=== PATIENT | female | born 1995 | race Caucasian/White ===

== ENCOUNTER 2016-12-28 18:33 | Emergency (ER) | payer SELFPAY ==
[2016-12-28 19:01] VITALS: BP 111/78; PULSE 73; TEMP 98.2; BMI 24.3
[2016-12-28 20:53] LABS: URINE APPEARANCE SLCLOUDY; URINE BILIRUBIN NEGATIVE (NEGATIVE); URINE BLOOD 1+ (NEGATIVE); URINE COLOR STRAW; URINE GLUCOSE (UA) NEGATIVE (NEGATIVE); URINE KETONE NEGATIVE (NEGATIVE); URINE LEUK ESTERASE 2+ (NEGATIVE); URINE NITRITE NEGATIVE (NEGATIVE); URINE PROTEIN NEGATIVE (NEGATIVE); URINE UROBILINOGEN NEGATIVE E.U./dl (0.2-1.0)
[2016-12-28 20:55] LABS: URINE RBC <1 /hpf (0-3); URINE WBC 20 /hpf (3-5)
[2016-12-28 20:56] LABS: URINE BACTERIA MANY /hpf (NONE SEEN)
--- NOTE | 2016-12-28 21:31 | PDOC ---
History of Present Illness - General Chief Complaint: Urinary Problem Stated Complaint: URINARY PROBLEM Time Seen by Provider: 12/28/16 21:05 History Source: Patient Exam Limitations: No Limitations - History of Present Illness Travel History: No Initial Comments: 12/28/16 21:29 21 yr female with pain and urgency with urination for 2 weeks. pt has history of frequent UTI. no fever no vomiting. no medical history. Pain Radiation: reports: no radiation Past History - Past Medical History Allergies/Adverse Reactions: Allergies Allergy/AdvReac Type Severity Reaction Status Date / Time milk Allergy Rash Verified 12/28/16 18:58 tomato [Tomato] Allergy Rash Verified 12/28/16 18:58 wheat Allergy Hives Verified 12/28/16 18:58 Home Medications: Ambulatory Orders Cephalexin [Keflex] 500 mg PO BID #14 capsule 12/28/16 Phenazopyridine HCl [Pyridium] 200 mg PO TID PRN #6 tablet 12/28/16 Anemia: Yes Asthma: No Cancer: No Cardiac Disorders: No Disorders: Yes (UTI'S AND KIDNEY INFECTIONS) - Reproductive History (#): 0 - Immunization History Immunization Up to Date: Yes - Psycho/Social/Smoking Cessation Hx Anxiety: Yes ( YOUNGER CHILD, NO MEDS NOW) Suicidal Ideation: No Smoking Status: No Smoking History: Never smoked Have you smoked in the past 12 months: No Number of Cigarettes Smoked Daily: 0 Hx Alcohol Use: No Drug/Substance Use Hx: No Substance Use Type: None Review of Systems - Review of Systems Able to Perform ROS?: Yes Is the patient limited Togolese proficient: No Constitutional: No: Symptoms Reported HEENTM: No: Symptoms Reported Respiratory: No: Symptoms reported Cardiac (ROS): No: Symptoms Reported ABD/GI: No: Symptoms Reported : Yes: Symptoms Reported *Physical Exam - Vital Signs Last Vital Signs Temp Pulse Resp BP Pulse Ox 98.2 F 73 19 111/78 100 12/28/16 18:58 12/28/16 18:58 12/28/16 18:58 12/28/16 18:58 12/28/16 18:58 - Physical Exam General Appearance: Yes: Nourished, Appropriately Dressed HEENT: positive: EOMI, LIBAN Neck: positive: Supple Respiratory/Chest: positive: Lungs Clear, Normal Breath Sounds Cardiovascular: positive: Regular Rhythm, Regular Rate Gastrointestinal/Abdominal: positive: Normal Bowel Sounds, Soft Musculoskeletal: positive: Normal Inspection. negative: CVA Tenderness, CVA Tenderness (R) Extremity: positive: Normal Capillary Refill, Normal Inspection, Normal Range of Motion Integumentary: positive: Normal Color, Dry, Warm Neurologic: positive: Fully Oriented, Alert, Normal Mood/Affect, Normal Response , Motor Strength 5/ ED Treatment Course - ADDITIONAL ORDERS Additional order review: Laboratory Results 12/28/16 20:30 Urine Color Straw Urine Appearance Slcloudy Urine pH 6.0 Ur Specific [place] 1.003 Urine Protein Negative Urine Glucose (UA) Negative Urine Ketones Negative Urine Blood 1+ H Urine Nitrite Negative Urine Bilirubin Negative Urine Urobilinogen Negative Ur Leukocyte Esterase 2+ H Urine RBC <1 Urine WBC 20 Ur Epithelial Cells Few Urine Bacteria Many Urine HCG, Qual Negative Medical Decision Making - Medical Decision Making 12/28/16 21:30 cc: urinary urgency and frequency no fever or chills will check UA, 'LMP 3 weeks ago denies vaginal discharge *DC/Admit/Observation/Transfer Diagnosis at time of Disposition: UTI (urinary tract infection) Qualifiers: Urinary tract infection type: acute cystitis Hematuria presence: with hematuria Qualified Code(s): N30.01 - Acute cystitis with hematuria - Discharge Dispostion Disposition: HOME Condition at time of disposition: Good - Prescriptions Prescriptions: Cephalexin [Keflex] 500 mg PO BID #14 capsule Phenazopyridine HCl [Pyridium] 200 mg PO TID PRN #6 tablet PRN Reason: Pain - Patient Instructions Additional Instructions: drink pleanty of water take the antibiotics as prescribed take pyridium as directed for discomfort follow with your mortar man or primary care in one week for repeat urine sample test return if any worsening symptoms
[2016-12-28] MEDS ORDERED: CEPHALEXIN MONOHYDRATE 500 MG CAPSULE (UD) PO ONE (21:32)
[2016-12-28] MEDS ORDERED: PHENAZOPYRIDINE HCL 100 MG TABLET (FP) PO ONE (21:32)
[2016-12-28] MEDS ORDERED: PHENAZOPYRIDINE HCL 100 MG TABLET (FP) ONE (21:34)
[2016-12-28] MEDS ORDERED: CEPHALEXIN MONOHYDRATE 500 MG CAPSULE (UD) ONE (21:35)
== END 2016-12-28 21:44 | disposition home or self-care (01) ==
LOC: JERFT 18:33
DX: N30.01 Acute cystitis with hematuria (principal)
CPT/HCPCS: 36415; 81003; 81015; 84703; 87086; 87186; 87491; 87591; 99281-25

== ENCOUNTER 2017-04-10 01:02 | Emergency (ER) | payer OTHER ==
[2017-04-10 01:22] VITALS: BP 101/69; PULSE 84; TEMP 98.7; BMI 23.9
--- NOTE | 2017-04-10 01:47 | PDOC ---
History of Present Illness - General History Source: Patient Exam Limitations: No Limitations - History of Present Illness Initial Comments: 04/10/17 01:46 The patient is a 22 year old female, with a significant past medical history of frequent urinary tract infections, who presents to the emergency department complaining of dysuria prior to arrival. The patient reports difficulty urinating and painful urination. The patient states she was seen for a previous urinary tract infection approx. two months ago and received a full course of antibiotics (unable to provide medication name) with mild relief. Patient reports associated symptoms of lower back pain and nausea. Patient denies hematuria. She denies recent fevers, chills, headache or dizziness. She denies recent nausea, vomit, diarrhea or constipation. She denies recent chest pain or shortness of breath. Allergies: Milk, Tomato, Wheat Past surgical history: None reported. Social history: Nonsmoker. Denies EtOH use and recreational drug use. Primary Care Physician: None <Trace Singh - Last Filed: 04/10/17 02:53> <More Leo - Last Filed: 04/10/17 05:14> - General Chief Complaint: Pain Stated Complaint: PAIN WHEN URINATING Time Seen by Provider: 04/10/17 01:46 Past History <Trace Singh - Last Filed: 04/10/17 02:53> - Past Medical History Anemia: Yes Asthma: No Cancer: No Cardiac Disorders: No Disorders: Yes (UTI's & kidney infections) - Reproductive History (#): 0 - Immunization History Immunization Up to Date: Yes - Psycho/Social/Smoking Cessation Hx Anxiety: Yes ( YOUNGER CHILD, NO MEDS NOW) Suicidal Ideation: No Smoking Status: No Smoking History: Never smoked Have you smoked in the past 12 months: No Number of Cigarettes Smoked Daily: 0 Information on smoking cessation initiated: No Hx Alcohol Use: No Drug/Substance Use Hx: No Substance Use Type: None <More Leo - Last Filed: 04/10/17 05:14> - Past Medical History Allergies/Adverse Reactions: Allergies Allergy/AdvReac Type Severity Reaction Status Date / Time milk Allergy Rash Verified 04/10/17 01:14 tomato [Tomato] Allergy Rash Verified 04/10/17 01:14 wheat Allergy Hives Verified 04/10/17 01:14 Home Medications: Ambulatory Orders Cephalexin [Keflex] 500 mg PO BID #14 capsule 12/28/16 Phenazopyridine HCl [Pyridium] 200 mg PO TID PRN #6 tablet 12/28/16 Levofloxacin [Levaquin] 750 mg PO DAILY #4 tab 04/10/17 Review of Systems - Review of Systems Able to Perform ROS?: Yes Comments:: 04/10/17 01:46 GENERAL/CONSTITUTIONAL: No fever or chills. No weakness. HEAD, EYES, EARS, NOSE AND THROAT: No change in vision. No ear pain or discharge. No sore throat. CARDIOVASCULAR: No chest pain or shortness of breath. RESPIRATORY: No cough, wheezing, or hemoptysis. GASTROINTESTINAL: +Nausea. No vomiting, diarrhea or constipation. GENITOURINARY: +Dysuria. MUSCULOSKELETAL: +Lower back pain. No joint or muscle swelling or pain. No neck pain. SKIN: No rash NEUROLOGIC: No headache, vertigo, loss of consciousness, or change in strength/ sensation. ENDOCRINE: No increased thirst. No abnormal weight change. HEMATOLOGIC/LYMPHATIC: No anemia, easy bleeding, or history of blood clots. ALLERGIC/IMMUNOLOGIC: No hives or skin allergy. <Trace Singh - Last Filed: 04/10/17 02:53> *Physical Exam - Vital Signs Last Vital Signs Temp Pulse Resp BP Pulse Ox 98.7 F 84 20 101/69 99 04/10/17 01:15 04/10/17 01:15 04/10/17 01:15 04/10/17 01:15 04/10/17 01:15 - Physical Exam Comments: 04/10/17 01:46 GENERAL: Awake, alert, and fully oriented, in no acute distress HEAD: No signs of trauma EYES: PERRLA, EOMI, sclera anicteric, conjunctiva clear ENT: Auricles normal inspection, hearing grossly normal, nares patent, oropharynx clear without exudates. Moist mucosa NECK: Normal ROM, supple, no lymphadenopathy, JVD, or masses LUNGS: Breath sounds equal, clear to auscultation bilaterally. No wheezes, and no crackles HEART: Regular rate and rhythm, normal S1 and S2, no murmurs, rubs or gallops ABDOMEN: +Mild suprapubic tenderness. Soft, nontender, normoactive bowel sounds. No guarding, no rebound. No masses EXTREMITIES: Normal range of motion, no edema. No clubbing or cyanosis. No cords, erythema, or tenderness NEUROLOGICAL: Cranial nerves II through XII grossly intact. Normal speech, normal gait SKIN: Warm, Dry, normal turgor, no rashes or lesions noted. Back: No CVA tenderness <Trace Singh - Last Filed: 04/10/17 02:53> - Vital Signs Last Vital Signs Temp Pulse Resp BP Pulse Ox 98.7 F 84 20 101/69 99 04/10/17 01:15 04/10/17 01:15 04/10/17 01:15 04/10/17 01:15 04/10/17 01:15 <More Leo - Last Filed: 04/10/17 05:14> ED Treatment Course - ADDITIONAL ORDERS Additional order review: Laboratory Results 04/10/17 02:00 Urine Color Lt. yellow Urine Appearance Clear Urine pH 6.5 Urine Protein 1+ H Urine Glucose (UA) Negative Urine Ketones Trace H Urine Blood 1+ H Urine Nitrite Negative Urine Bilirubin Negative Urine Urobilinogen 0.2 Ur Leukocyte Esterase 2+ H Urine HCG, Qual Negative <Trace Singh - Last Filed: 04/10/17 02:53> Medical Decision Making - Medical Decision Making Prior culture results reviewed. Patient has had two cultures in the past year, both sensitive to levaquin. Prior culture from 2012 was resistant to levaquin. Will treat with levaquin at present, as she recently failed treatment with keflex. UCx pending. Will give her f/u information for internal medicine, as she needs an hydrate control tender for referrals. Should f/u with urology. <More Leo - Last Filed: 04/10/17 05:14> *DC/Admit/Observation/Transfer - Attestations Scribe Attestion: 04/10/17 02:54 Documentation prepared by Trace Singh, acting as electromedical service engineer for More Leo MD. <Trace Singh - Last Filed: 04/10/17 02:53> - Discharge Dispostion Admit: No <More Leo - Last Filed: 04/10/17 05:14> Diagnosis at time of Disposition: UTI (urinary tract infection) Qualifiers: Urinary tract infection type: site unspecified Hematuria presence: without hematuria Qualified Code(s): N39.0 - Urinary tract infection, site not specified - Discharge Dispostion Disposition: HOME Condition at time of disposition: Stable - Prescriptions Prescriptions: Levofloxacin [Levaquin] 750 mg PO DAILY #4 tab - Patient Instructions Printed Discharge Instructions: DI for Urinary Tract Infection (UTI)
[2017-04-10 02:29] LABS: PH,URINE 6.5 (5.0-8.0); URINE APPEARANCE CLEAR; URINE BILIRUBIN NEGATIVE (NEGATIVE); URINE BLOOD 1+ (NEGATIVE); URINE COLOR LT. YELLOW; URINE GLUCOSE (UA) NEGATIVE (NEGATIVE); URINE KETONE TRACE (NEGATIVE); URINE NITRITE NEGATIVE (NEGATIVE); URINE UROBILINOGEN 0.2 mg/dL (0.2-1.0)
[2017-04-10 02:38] LABS: URINE LEUK ESTERASE 2+ (NEGATIVE); URINE PROTEIN 1+ (NEGATIVE)
[2017-04-10] MEDS ORDERED: LEVOFLOXACIN 250 MG TABLET (FP) PO ONE (02:47)
[2017-04-10 02:52] LABS: URINE HYALINE CAST 3 /lpf; URINE MUCUS MANY; URINE RBC 16 /hpf (0-3); URINE WBC 155 /hpf (3-5)
[2017-04-10] MEDS ORDERED: LEVOFLOXACIN 500 MG TABLET (FP) ONE (03:07)
[2017-04-10] MEDS ORDERED: LEVOFLOXACIN 250 MG TABLET (FP) ONE (03:08)
== END 2017-04-10 03:04 | disposition home or self-care (01) ==
LOC: JER 01:02
DX: N39.0 Urinary tract infection, site not specified (principal); D64.9 Anemia, unspecified
CPT/HCPCS: 81003; 81015; 84703; 87086; 87186; 99282-25

== ENCOUNTER 2018-07-27 23:26 | Emergency (ER) | payer SELFPAY ==
--- NOTE | 2018-07-27 23:42 | PDOC ---
History of Present Illness - General History Source: Patient Exam Limitations: No Limitations - History of Present Illness Initial Comments: 07/28/18 00:05 CC: Fever and body aches HPI: The patient is a 23 year old female, with no significant past medical history, who presents to the emergency department with, 1 day of fever and body aches. As per patient, her symptoms onset this morning with an associated nausea, headache, and sore throat. She notes a Tmax of 104 degrees Fahrenheit. Patient endorses that her symptoms are similar to that in the past when she was diagnosed with the flu. She denies recent dizziness. She denies recent vomit, diarrhea or constipation. She denies recent dysuria, frequency, urgency or hematuria. She denies recent chest pain or shortness of breath. Allergies: Tomato, wheat, milk Past surgical history: None reported. Social history: Nonsmoker. Denies EtOH use and recreational drug use. Primary Care Physician: Dr. Pozo <Leila García - Last Filed: 07/28/18 00:05> <William Gabriel - Last Filed: 07/28/18 05:22> - General Chief Complaint: Respiratory Stated Complaint: FEVER Time Seen by Provider: 07/27/18 23:29 Past History <Leila García - Last Filed: 07/28/18 00:05> - Past Medical History Anemia: Yes Asthma: No Cancer: No Cardiac Disorders: No Disorders: Yes (UTI'S AND KIDNEY INFECTIONS) - Reproductive History (#): 0 - Immunization History Immunization Up to Date: Yes - Suicide/Smoking/Psychosocial Hx Smoking Status: No Smoking History: Never smoked Have you smoked in the past 12 months: No Number of Cigarettes Smoked Daily: 0 Hx Alcohol Use: No Drug/Substance Use Hx: No Substance Use Type: None <William Gabriel - Last Filed: 07/28/18 05:22> - Past Medical History Allergies/Adverse Reactions: Allergies Allergy/AdvReac Type Severity Reaction Status Date / Time milk Allergy Rash Verified 04/10/17 01:14 No Known Drug Allergies Allergy Verified 07/27/18 23:27 tomato [Tomato] Allergy Rash Verified 04/10/17 01:14 wheat Allergy Hives Verified 04/10/17 01:14 Home Medications: Ambulatory Orders NK [No Known Home Medication] 07/27/18 Review of Systems - Review of Systems Able to Perform ROS?: Yes Comments:: 07/28/18 00:05 ROS: A complete review of 10 out of 10 review of systems is taken and is negative apart from what is previously mentioned below and in the HPI. <Leila García - Last Filed: 07/28/18 00:05> *Physical Exam - Vital Signs Last Vital Signs Temp Pulse Resp BP Pulse Ox 99.4 F 99 H 16 101/78 100 07/27/18 23:27 07/27/18 23:27 07/27/18 23:27 07/27/18 23:27 07/27/18 23:27 - Physical Exam Comments: 07/28/18 00:05 Vitals: Triage vital signs reviewed General Appearance: No acute distress, well nourished, well developed Head: Atraumatic Eyes: Pupils equal reactive round, extraocular movement intact Ears: TM's normal bilaterally Nose: Nares patent bilaterally; no nasal congestion +Throat: Mild erythema to the posterior pharynx, mucous membranes moist Neck: Supple; No nuchal rigidity Chest Wall: Nontender Cardiac: Regular rate and rhythm, no murmurs, no rubs, no gallops Lungs: Clear to auscultation bilateral, good air movement bilaterally Abdomen: Soft, nondistended, normal bowel sounds, nontender to palpation Genitourinary: Rectal: Exam deferred Extremities: Full range of motion to all extremities, no cyanosis, clubbing, or edema Skin: Warm and dry, no rashes or lesions, no rash, no petechiae Neuro: AOX3; Cranial Nerves 2-12 grossly intact, Strength intact to all extremities, Sensation intact to all extremities, gait normal Psych: Normal mood, normal affect <Leila García - Last Filed: 07/28/18 00:05> Moderate Sedation - Procedure Monitoring Vital Signs: Procedure Monitoring Vital Signs Temperature 99.4 F 07/27/18 23:27 Pulse Rate 99 H 07/27/18 23:27 Respiratory Rate 16 07/27/18 23:27 Blood Pressure 101/78 07/27/18 23:27 O2 Sat by Pulse Oximetry (%) 100 07/27/18 23:27 <Leila García - Last Filed: 07/28/18 00:05> ED Treatment Course - Medications Given in the ED: ED Medications Discontinued Medications Generic Name Dose Route Start Last Admin Trade Name Isatu PRN Reason Stop Dose Admin Ibuprofen 600 mg 07/27/18 23:51 07/27/18 23:58 Motrin - PO 07/27/18 23:52 600 mg ONCE ONE Administration <Leila García - Last Filed: 07/28/18 00:05> Medical Decision Making - Medical Decision Making 07/28/18 00:06 23 year old female, with no significant past medical history, who presents to the emergency department with, 1 day of fever and body aches Plan is to: Strep culture Reassess <Leila García - Last Filed: 07/28/18 00:05> - Medical Decision Making Well-appearing no apparent distress history examination consistent with influenza-like illness. Patient has had adverse reaction in the past to Tamiflu We'll recommend alternating Tylenol Motrin rapid strep sent no indication to send influenza swab Findings, need for follow-up and strict return instructions discussed patient. <William Gabriel - Last Filed: 07/28/18 05:22> *DC/Admit/Observation/Transfer - Attestations Scribe Attestion: 07/28/18 00:06 Documentation prepared by Leila García, acting as medical physics researcher for William Gabriel MD. <Leila García - Last Filed: 07/28/18 00:05> <William Gabriel - Last Filed: 07/28/18 05:22> Diagnosis at time of Disposition: Influenza-like illness - Discharge Dispostion Disposition: HOME Condition at time of disposition: Stable - Referrals Referrals: Diana Pozo MD [Primary Care Provider] - - Patient Instructions - Post Discharge Activity Forms/Work/School Notes: Back to Work
[2018-07-27 23:45] VITALS: BP 101/78; PULSE 99; TEMP 99.4; BMI 24.3
[2018-07-27] MEDS ORDERED: IBUPROFEN 600 MG TABLET (FP) PO ONE ×2 (23:51→23:56)
== END 2018-07-28 00:05 | disposition home or self-care (01) ==
LOC: FER 23:26
DX: J11.1 Influenza due to unidentified influenza virus with other respiratory manifestations (principal)
CPT/HCPCS: 87070; 99281-25

== ENCOUNTER 2019-05-26 15:58 | Emergency (ER) | payer OTHER ==
[2019-05-26 16:24] VITALS: BP 109/75; PULSE 79; TEMP 98.5; BMI 23.9
[2019-05-26 17:15] LABS: EPI CELLS 0.4 /HPF (0-5/HPF); HYALINE CASTS 3 /lpf (0-8); URINE APPEARANCE CLOUDY; URINE BACTERIA 4.1 /hpf (NEGATIVE); URINE BILIRUBIN NEGATIVE (NEGATIVE); URINE COLOR YELLOW; URINE GLUCOSE (UA) NEGATIVE (NEGATIVE); URINE KETONE NEGATIVE (NEGATIVE); URINE LEUK ESTERASE 2+ (NEGATIVE); URINE NITRITE NEGATIVE (NEGATIVE); URINE PROTEIN TRACE (NEGATIVE); URINE RBC 6 /hpf (0-4); URINE WBC 340 /hpf (0-5)
--- NOTE | 2019-05-26 17:27 | PDOC ---
History of Present Illness - General Chief Complaint: Urinary Problem Stated Complaint: UTI SYX Time Seen by Provider: 05/26/19 16:25 - History of Present Illness Initial Comments: 05/26/19 17:23 24 y/o F with UTI symptoms x2 weeks no systemic symptoms Past History - Past Medical History Allergies/Adverse Reactions: Allergies Allergy/AdvReac Type Severity Reaction Status Date / Time milk Allergy Rash Verified 05/26/19 16:24 No Known Drug Allergies Allergy Verified 05/26/19 16:24 tomato [Tomato] Allergy Rash Verified 05/26/19 16:24 wheat Allergy Hives Verified 05/26/19 16:24 Home Medications: Ambulatory Orders Cephalexin [Keflex] 500 mg PO TID #21 capsule 05/26/19 Anemia: Yes Asthma: No Cancer: No Cardiac Disorders: No COPD: No Disorders: Yes (UTI'S AND KIDNEY INFECTIONS) - Reproductive History (#): 0 - Immunization History Immunization Up to Date: Yes - Psycho Social/Smoking Cessation Hx Smoking Status: No Smoking History: Never smoked Have you smoked in the past 12 months: No Number of Cigarettes Smoked Daily: 0 Hx Alcohol Use: No Drug/Substance Use Hx: No Substance Use Type: None Review of Systems - Review of Systems Constitutional: No: Fever : Yes: Burning, Dysuria, Frequency. No: Discharge, Flank Pain *Physical Exam - Vital Signs Last Vital Signs Temp Pulse Resp BP Pulse Ox 98.5 F 79 18 109/75 100 05/26/19 16:22 05/26/19 16:22 05/26/19 16:22 05/26/19 16:22 05/26/19 16:22 - Physical Exam General Appearance: Yes: Nourished, Appropriately Dressed. No: Apparent Distress HEENT: positive: Normal ENT Inspection, Normal Voice, Symmetrical Neck: positive: Trachea midline Respiratory/Chest: negative: Respiratory Distress Musculoskeletal: positive: Normal Inspection. negative: CVA Tenderness Extremity: positive: Normal Inspection Integumentary: positive: Normal Color, Dry, Warm ED Treatment Course - ADDITIONAL ORDERS Additional order review: Laboratory Results 05/26/19 05/26/19 17:00 17:00 Urine Color Yellow Urine Appearance Cloudy Urine pH 6.0 Ur Specific [place] 1.032 Urine Protein Trace Urine Glucose (UA) Negative Urine Ketones Negative Urine Blood Trace Urine Nitrite Negative Urine Bilirubin Negative Urine Urobilinogen 1.0 Ur Leukocyte Esterase 2+ H Urine WBC (Auto) 340 Urine RBC (Auto) 6 Urine Casts (Auto) 3 U Epithel Cells (Auto) 0.4 Urine Bacteria (Auto) 4.1 Urine HCG, Qual Negative Medical Decision Making - Medical Decision Making 05/26/19 17:25 Keflex for UTI Discharge - Discharge Information Problems reviewed: Yes Clinical Impression/Diagnosis: UTI (urinary tract infection) Condition: Stable Disposition: HOME - Admission No - Additional Discharge Information Prescriptions: Cephalexin [Keflex] 500 mg PO TID #21 capsule - Follow up/Referral Referrals: Henry Land MD [Primary Care Provider] - - Patient Discharge Instructions Additional Instructions: Return to the emergency room should symptoms worsen. Follow up with your primary care physician in 1-2 days for further evaluation and treatment options. Please take and finish all the antibiotics as directed. - Post Discharge Activity
== END 2019-05-26 17:28 | disposition home or self-care (01) ==
LOC: JERFT 15:58
DX: N39.0 Urinary tract infection, site not specified (principal); Z91.018 Allergy to other foods; Z91.011 Allergy to milk products
CPT/HCPCS: 81003; 84703; 87086; 99283-25

== ENCOUNTER 2021-03-22 00:18 | Emergency (ER) | payer OTHER ==
[2021-03-22 00:42] VITALS: BMI 28.6
[2021-03-22 01:08] LABS: URINE APPEARANCE CLEAR; URINE BILIRUBIN NEGATIVE (NEGATIVE); URINE COLOR YELLOW; URINE GLUCOSE (UA) NEGATIVE (NEGATIVE); URINE KETONE NEGATIVE (NEGATIVE); URINE LEUK ESTERASE 1+ (NEGATIVE); URINE NITRITE NEGATIVE (NEGATIVE); URINE PROTEIN NEGATIVE (NEGATIVE); URINE UROBILINOGEN 0.2 mg/dL (0.2-1.0)
[2021-03-22] MEDS ORDERED: SODIUM CHLORIDE 0.9% 500 ML INFUS.BAG IV ONE (01:56)
[2021-03-22] MEDS ORDERED: ACETAMINOPHEN 1000 MG/100 ML VIAL (NON FORMULARY) IVPB ONE (01:56)
[2021-03-22] MEDS ORDERED: ACETAMINOPHEN INJECTION 100 ML IVPB ONE (02:00)
[2021-03-22 02:34] LABS: BASO % 0.6 % (0-2.0); EOS % 5.7 % (0-4.5); HEMATOCRIT 41.9 % (32.4-45.2); HEMOGLOBIN 14.5 GM/dL (10.7-15.3); MCH 30.5 pg (25.7-33.7); MCHC 34.7 g/dl (32.0-36.0); MEAN CELL VOLUME 87.8 fl (80-96); MEAN PLT VOLUME 8.5 fl (7.5-11.1); MONO % 9.9 % (3.8-10.2); NEUT % 61.8 % (42.8-82.8); PLATELET COUNT 216 10^3/uL (134-434); RBC 4.77 M/mm3 (3.60-5.2)
[2021-03-22 03:06] LABS: BLOOD UREA NITROGEN 12.2 mg/dL (7-18); CALCIUM 8.8 mg/dL (8.5-10.1)
[2021-03-22 03:09] LABS: CREATININE 0.9 mg/dL (0.55-1.3)
[2021-03-22 03:10] LABS: BILIRUBIN,TOTAL 0.4 mg/dL (0.2-1); TOT PROT 7.6 g/dl (6.4-8.2)
[2021-03-22] MEDS ORDERED: CEFTRIAXONE 1 GM in DEXTROSE 5%-WATER - 100 ML IVPB ONE (04:14)
[2021-03-22] MEDS ORDERED: CEFTRIAXONE 1 GM/50 ML BAG ONE (04:22)
[2021-03-22 06:11] VITALS: BP 93/61; PULSE 90; TEMP 98.4
== END 2021-03-22 07:12 | disposition home or self-care (01) ==
LOC: JER 00:18
PROC: 3E03329 Introduction of Other Anti-infective into Peripheral Vein, Percutaneous Approach (ICD-10-PCS; principal; 2021-03-22)
PROC: 3E033NZ Introduction of Analgesics, Hypnotics, Sedatives into Peripheral Vein, Percutaneous Approach (ICD-10-PCS; 2021-03-22)
DX: N39.0 Urinary tract infection, site not specified (principal)
CPT/HCPCS: 36415; 74177-TC; 76830-TC; 80053; 81003; 83690; 84703; 85025; 87086; 87491; 87591; 87661; 99285-25; J0131

== ENCOUNTER 2021-03-27 09:43 | Emergency (ER) | payer OTHER ==
[2021-03-27 10:06] VITALS: BMI 28.3
[2021-03-27] MEDS ORDERED: IBUPROFEN 400 MG TABLET (FP) PO ONE ×2 (10:46→11:09)
[2021-03-27] MEDS ORDERED: SODIUM CHLORIDE 0.9% 500 ML INFUS.BAG IV ONE (10:49)
[2021-03-27 11:13] LABS: BASO % 1.7 % (0-2.0); EOS % 2.7 % (0-4.5); HEMATOCRIT 39.9 % (32.4-45.2); HEMOGLOBIN 14.1 GM/dL (10.7-15.3); LYMPH % 47.5 % (8-40); MCH 30.8 pg (25.7-33.7); MCHC 35.4 g/dl (32.0-36.0); MEAN CELL VOLUME 87.2 fl (80-96); MEAN PLT VOLUME 8.2 fl (7.5-11.1); MONO % 15.6 % (3.8-10.2); NEUT % 32.5 % (42.8-82.8); PLATELET COUNT 181 10^3/uL (134-434); RBC 4.57 M/mm3 (3.60-5.2); RDW 13.2 % (11.6-15.6); WHITE BLOOD COUNT 2.6 K/mm3 (4.0-10.0)
[2021-03-27 11:19] LABS: HCG,QUALITATIVE URINE Negative
[2021-03-27 11:21] LABS: EPI CELLS 23 /uL (0-25.1); HYALINE CASTS 1 /uL (0-3.1); PH,URINE 5.5 (5.0-8.0); URINE APPEARANCE CLEAR; URINE BACTERIA 161 /uL (0-1359); URINE BILIRUBIN NEGATIVE (NEGATIVE); URINE COLOR YELLOW; URINE GLUCOSE (UA) NEGATIVE (NEGATIVE); URINE KETONE NEGATIVE (NEGATIVE); URINE LEUK ESTERASE NEGATIVE (NEGATIVE); URINE NITRITE NEGATIVE (NEGATIVE); URINE PROTEIN NEGATIVE (NEGATIVE); URINE RBC 22 /uL (0-23.9); URINE UROBILINOGEN 0.2 mg/dL (0.2-1.0); URINE WBC 9 /uL (0-25.8)
[2021-03-27 11:34] LABS: ALBUMIN 3.8 g/dl (3.4-5.0); BLOOD UREA NITROGEN 6.1 mg/dL (7-18); CALCIUM 8.3 mg/dL (8.5-10.1)
[2021-03-27 11:37] LABS: CREATININE 0.7 mg/dL (0.55-1.3)
[2021-03-27 11:39] LABS: BILIRUBIN,TOTAL 0.3 mg/dL (0.2-1); TOT PROT 7.3 g/dl (6.4-8.2)
[2021-03-27 12:24] LABS: BASO % 0.9 % (0-2.0); EOS % 2.3 % (0-4.5); HEMATOCRIT 39.1 % (32.4-45.2); HEMOGLOBIN 13.9 GM/dL (10.7-15.3); LYMPH % 55.4 % (8-40); MCHC 35.4 g/dl (32.0-36.0); MEAN CELL VOLUME 87.7 fl (80-96); MEAN PLT VOLUME 8.5 fl (7.5-11.1); MONO % 15.8 % (3.8-10.2); NEUT % 25.6 % (42.8-82.8); PLATELET COUNT 164 10^3/uL (134-434); RBC 4.46 M/mm3 (3.60-5.2); RDW 12.8 % (11.6-15.6); WHITE BLOOD COUNT 2.4 K/mm3 (4.0-10.0)
[2021-03-27 13:01] VITALS: TEMP 98
[2021-03-27 15:19] VITALS: BP 106/80; PULSE 71
== END 2021-03-27 16:20 | disposition home or self-care (01) ==
LOC: JER 09:43
DX: U07.1 COVID-19 (principal)
CPT/HCPCS: 36415; 71045-TC-FY; 80053; 81003; 84703; 85025; 87086; 87804; 93005; 93010; 99284-25; C9803; U0003; U0005

== ENCOUNTER 2023-04-14 15:43 | Emergency (ER) | payer OTHER ==
[2023-04-14 15:46] VITALS: BP 111/73; PULSE 78; RESP 18; TEMP 98.5; BMI 26.5
[2023-04-14] MEDS ORDERED: ACETAMINOPHEN 1000 MG/100 ML BAG IVPB ONE ×2 (16:31→23:51)
[2023-04-14] MEDS ORDERED: ACETAMINOPHEN INJECTION 100 ML IVPB ONE (16:59)
[2023-04-14 18:23] LABS: EOS % 4.8 % (0-4.5); HEMATOCRIT 41.2 % (32.4-45.2); LYMPH % 30.9 % (8-40); MCH 30.6 pg (25.7-33.7); MCHC 33.9 g/dl (32.0-36.0); MEAN CELL VOLUME 90.2 fl (80-96); MEAN PLT VOLUME 10.3 fl (7.5-11.1); MONO % 7.2 % (3.8-10.2); NEUT % 56.1 % (42.8-82.8); PLATELET COUNT 153 10^3/uL (134-434); RBC 4.57 M/mm3 (3.60-5.2); RDW 13.2 % (11.6-15.6); WHITE BLOOD COUNT 7.4 K/mm3 (4.0-10.0)
[2023-04-14 19:18] LABS: URINE COLOR YELLOW
[2023-04-14 19:19] LABS: PH,URINE 7.5 (5.0-8.0); URINE APPEARANCE CLEAR; URINE BILIRUBIN NEGATIVE (NEGATIVE); URINE GLUCOSE (UA) NEGATIVE (NEGATIVE); URINE KETONE NEGATIVE (NEGATIVE); URINE LEUK ESTERASE 1+ (NEGATIVE); URINE NITRITE NEGATIVE (NEGATIVE); URINE PROTEIN NEGATIVE (NEGATIVE); URINE UROBILINOGEN 0.2 mg/dL (0.2-1.0)
[2023-04-14 20:34] LABS: INR 1.07 (0.83-1.09); PROTHROMBIN TIME (PATIENT) 12.4 SEC (9.7-13.0)
[2023-04-14 20:40] LABS: POTASSIUM 4.6 mmol/L (3.5-5.1)
[2023-04-14 20:42] LABS: CALCIUM 9.3 mg/dL (8.5-10.1)
[2023-04-14 20:43] LABS: BLOOD UREA NITROGEN 10.1 mg/dL (7-18)
[2023-04-14 20:46] LABS: CREATININE 0.7 mg/dL (0.55-1.3)
[2023-04-14 20:47] LABS: BILIRUBIN,TOTAL 0.4 mg/dL (0.2-1); TOT PROT 7.7 g/dl (6.4-8.2)
[2023-04-14] MEDS ORDERED: KETOROLAC TROMETHAMINE 15 MG/ML VIAL IVPUSH ONE (23:52)
[2023-04-15] MEDS ORDERED: KETOROLAC TROMETHAMINE 15 MG/ML VIAL ONE (00:07)
== END 2023-04-15 00:33 | disposition home or self-care (01) ==
LOC: JER 15:43
PROC: 3E033NZ Introduction of Analgesics, Hypnotics, Sedatives into Peripheral Vein, Percutaneous Approach (ICD-10-PCS; principal; 2023-04-14)
PROC: 3E033GC Introduction of Other Therapeutic Substance into Peripheral Vein, Percutaneous Approach (ICD-10-PCS; 2023-04-14)
DX: R10.31 Right lower quadrant pain (principal); R11.0 Nausea; N83.01 Follicular cyst of right ovary
CPT/HCPCS: 36415; 74177-TC; 76830-TC; 80053; 81003; 84703; 85025; 85610; 86850; 86900; 86901; 87086; 99285-25; Q9967

== ENCOUNTER 2023-07-18 08:13 | Emergency (ER) | payer OTHER ==
[2023-07-18 08:19] VITALS: BP 114/79; PULSE 67; RESP 20; TEMP 98.3; BMI 26.4
[2023-07-18] MEDS ORDERED: SODIUM CHLORIDE 1,000 ML IV STA (08:48)
[2023-07-18] MEDS ORDERED: METOCLOPRAMIDE HCL INJECTION 10 MG/2 ML VIAL IVPB ONE (08:49)
[2023-07-18] MEDS ORDERED: ACETAMINOPHEN 1000 MG/100 ML BAG IVPB ONE (08:49)
[2023-07-18] MEDS ORDERED: METOCLOPRAMIDE HCL INJECTION 10 MG/2 ML VIAL ONE (09:09)
[2023-07-18] MEDS ORDERED: ACETAMINOPHEN INJECTION 100 ML IVPB ONE (09:10)
[2023-07-18] MEDS ORDERED: DEXAMETHASONE SOD PHOSPHATE 10 MG/1 ML VIAL IVPUSH ONE (09:12)
[2023-07-18] MEDS ORDERED: DEXAMETHASONE SOD PHOSPHATE 10 MG/1 ML VIAL ONE (09:24)
[2023-07-18] MEDS ORDERED: KETOROLAC TROMETHAMINE 15 MG/ML VIAL IM ONE (10:21)
[2023-07-18] MEDS ORDERED: KETOROLAC TROMETHAMINE 15 MG/ML VIAL ONE (10:35)
== END 2023-07-18 11:03 | disposition home or self-care (01) ==
LOC: JER 08:13
PROC: 3E033NZ Introduction of Analgesics, Hypnotics, Sedatives into Peripheral Vein, Percutaneous Approach (ICD-10-PCS; principal; 2023-07-18)
PROC: 3E0233Z Introduction of Anti-inflammatory into Muscle, Percutaneous Approach (ICD-10-PCS; 2023-07-18)
PROC: 3E033GC Introduction of Other Therapeutic Substance into Peripheral Vein, Percutaneous Approach (ICD-10-PCS; 2023-07-18)
PROC: 3E033GC Introduction of Other Therapeutic Substance into Peripheral Vein, Percutaneous Approach (ICD-10-PCS; 2023-07-18)
PROC: 3E0337Z Introduction of Electrolytic and Water Balance Substance into Peripheral Vein, Percutaneous Approach (ICD-10-PCS; 2023-07-18)
DX: R51.9 Headache, unspecified (principal); R11.2 Nausea with vomiting, unspecified; H53.149 Visual discomfort, unspecified
CPT/HCPCS: 36415; 84703; 99284-25; J1100